=== PATIENT | male | born 1945 | race Caucasian/White ===

== ENCOUNTER 2024-08-17 12:15 | Inpatient (IN) | payer MEDICARE ==
[~2024-08-17] VITALS: Ht 182.9 cm; Wt 88.0 kg
[2024-08-17] MEDS ORDERED: dexaMETHasone SOD PHOSPHATE 1 ML ONE (12:32)
[2024-08-17] MEDS: IV NS 0.9% 1,000 ML BAG IV ONE (12:40)
[2024-08-17] MEDS: dexaMETHasone SOD PHOSPHATE 4 MG/ML VIAL IV ONE (12:45)
[2024-08-17] MEDS ORDERED: IPRATROPIUM NEB FS 0.5 MG/2.5 ML AMPUL.NEB ONE (12:47)
[2024-08-17] MEDS ORDERED: ALBUTEROL FS 2.5 MG/3 ML VIAL.NEB ONE (12:47)
[2024-08-17 12:48] VITALS: O2SAT 91
[2024-08-17 12:50] LABS: BASOPHILS # (AUTO) 0.1 K/uL (0.0-0.2); BASOPHILS % (AUTO) 0.8 % (0.0-2.0); EOSINOPHILS # (AUTO) 0.2 K/uL (0.0-0.7); EOSINOPHILS % (AUTO) 3.7 % (0.0-6.0); HEMATOCRIT 41 % (39-51); HEMOGLOBIN 13.9 g/dL (13.5-17.5); LYMPHOCYTES # (AUTO) 0.2 K/uL (0.8-4.8); LYMPHOCYTES % (AUTO) 2.7 % (20.0-44.0); MEAN CORPUSCULAR HEMOGLOBIN 31 PG (26.0-33.0); MEAN CORPUSCULAR HGB CONC 34 g/dl (31.0-36.0); MEAN CORPUSCULAR VOLUME 93 fL (80-96); MONOCYTES # (AUTO) 0.4 K/uL (0.1-1.30); MONOCYTES % (AUTO) 5.7 % (2.0-12.0); NEUTROPHILS # (AUTO) 5.9 K/uL (1.8-8.9); NEUTROPHILS % (AUTO) 87.1 % (43.0-81.0); PLATELET COUNT (AUTO) 320 K/uL (150-450); RED BLOOD CELL COUNT(AUTO) 4.43 MIL/uL (4.5-6.0); RED CELL DISTRIBUTION WIDTH 14.4 % (11.5-15.0); WHITE BLOOD COUNT (AUTO) 6.7 K/uL (4.3-11.0)
[2024-08-17] MEDS ORDERED: Magnesium 1GM/D5W 100ML PREMIX 200 ML IV ONE (12:50)
[2024-08-17] MEDS: Magnesium 1GM/D5W 100ML PREMIX 200 ML IV ONE (12:50)
[2024-08-17] MEDS: IPRATROPIUM NEB FS 0.5 MG/2.5 ML AMPUL.NEB NEB ONE (12:52)
[2024-08-17] MEDS: ALBUTEROL FS 2.5 MG/3 ML VIAL.NEB NEB ONE (12:52)
[2024-08-17 13:03] VITALS: O2SAT 98; O2SAT 99
[2024-08-17 13:03] LABS: CALCIUM, SERUM 9.6 mg/dL (8.5-10.1); CREATININE 0.9 mg/dL (0.6-1.3); POTASSIUM 3.5 mmol/L (3.5-5.1)
[2024-08-17] MEDS: CEFEPIME 1 GM in IV D5W 50 ML IV ONE (13:05)
[2024-08-17 13:08] LABS: ALBUMIN 3.7 g/dL (3.4-5.0); BILIRUBIN,DIRECT 0.2 mg/dL (0.0-0.2); BILIRUBIN,TOTAL 0.7 mg/dL (0.2-1.0); TOTAL PROTEIN, SERUM 7.6 g/dL (6.4-8.2)
[2024-08-17 13:11] LABS: LACTIC ACID 1.3 mmol/L (0.4-2.0)
[2024-08-17 13:19] LABS: INR 1.03 (0.91-1.10); PARTIAL THROMBOPLASTIN TIME 28.7 SEC (24.3-34.3); PROTHROMBIN TIME 10.9 SECS (9.2-11.1)
[2024-08-17] MEDS: VANCOMYCIN 1 GM in IV D5W 250 ML IV ONE (14:10)
[2024-08-17 15:19] LABS: APPEARANCE,URINE CLEAR (CLEAR); BILIRUBIN,URINE 1+ (NEGATIVE); BLOOD, URINE NEGATIVE Ery/uL (NEGATIVE); COLOR,URINE YELLOW (YELLOW); KETONES,URINE 2+ mg/dL (NEGATIVE); LEUKOCYTE ESTERASE ,URINE NEGATIVE (NEGATIVE); NITRITE, URINE NEGATIVE (NEGATIVE); PROTEIN,URINE NEGATIVE (NEGATIVE); UGLUCOSE NEGATIVE (NEGATIVE)
[2024-08-17 16:29] LABS: RBC,URINE 0-2 /HPF (0-2); WBC,URINE 0-2 /HPF (0-3)
[2024-08-17 16:30] LABS: ADD URINE CULTURE NO; BACTERIA,URINE None seen /HPF (None Seen); MUCUS,URINE Few /LPF (None Seen); SQUAMOUS EPITHELIAL CELL,UR 0-2 /HPF (None Seen)
[2024-08-17] MEDS ORDERED: ONDANSETRON HCL/PF 4 MG/2 ML VIAL IVP PRN (17:30)
[2024-08-17] MEDS ORDERED: MAGNESIUM HYDROXIDE 30 ML UDC PO PRN (17:30)
[2024-08-17 20:00] VITALS: BP 127/53; TEMP 97.9; O2SAT 95
[2024-08-17] MEDS: ENOXAPARIN SODIUM 40 MG/0.4 ML DISP.SYRIN SQ SCH (22:00)
[2024-08-18] VITALS (8 sets, daily range): BP systolic 125–154; BP diastolic 53–93; TEMP 97.3–98; O2SAT 93–99
[2024-08-18] MEDS: NICOTINE PATCH (14MG) 14 MG PATCH.TD24 TD SCH (02:02)
[2024-08-18 06:52] LABS: CALCIUM, SERUM 8.8 mg/dL (8.5-10.1); CREATININE 0.8 mg/dL (0.6-1.3); MAGNESIUM 2.2 mg/dL (1.8-2.4); PHOSPHORUS 2.4 mg/dL (2.5-4.9); POTASSIUM 3.7 mmol/L (3.5-5.1)
[2024-08-18 07:00] LABS: BASOPHILS % (AUTO) 0.1 % (0.0-2.0); HEMATOCRIT 38 % (39-51); HEMOGLOBIN 12.7 g/dL (13.5-17.5); LYMPHOCYTES # (AUTO) 0.2 K/uL (0.8-4.8); LYMPHOCYTES % (AUTO) 5.2 % (20.0-44.0); MEAN CORPUSCULAR HEMOGLOBIN 31 PG (26.0-33.0); MEAN CORPUSCULAR HGB CONC 34 g/dl (31.0-36.0); MEAN CORPUSCULAR VOLUME 92 fL (80-96); MONOCYTES # (AUTO) 0.7 K/uL (0.1-1.30); MONOCYTES % (AUTO) 17.5 % (2.0-12.0); NEUTROPHILS # (AUTO) 3.1 K/uL (1.8-8.9); NEUTROPHILS % (AUTO) 77.2 % (43.0-81.0); PLATELET COUNT (AUTO) 279 K/uL (150-450); RED CELL DISTRIBUTION WIDTH 14.2 % (11.5-15.0)
[2024-08-18] MEDS ORDERED: methylPREDNISolone SOD SUCC 40 MG/ML VIAL IV SCH (09:00)
[2024-08-18 10:27] LABS: ABG BASE EXCESS -1.1 mmol/L (-2.0-3.0); ABG OXYGEN SATURATION 93.5 % (94.0-98.0); ABG PCO2 29.8 mmHg (35.0-48.0); ABG PH 7.475 (7.350-7.450); ABG PO2 63.3 mmHg (83.0-108.0); ABG TOTAL HEMOGLOBIN 13.2 G/dL (13.5-17.5); COHb 0.2 % (0.5-1.5); MetHb 0.2 % (0.0-1.5); O2Hb 93.1 % (94.0-97.0); SITE, ABG RIGHT RADIAL
[2024-08-18] MEDS: PANTOPRAZOLE 40 MG TABLET.DR PO SCH (10:49)
[2024-08-18] MEDS: methylPREDNISolone SOD SUCC 40 MG/ML VIAL IV SCH (10:49)
[2024-08-18 11:06] LABS: LYMPHOCYTES % (MANUAL) 2 % (16-48); MONOCYTES % (MANUAL) 6 % (0-11.0); NEUTROPHILS % (MANUAL) 92 (42-76); PLATELET ESTIMATE ADEQUATE
[2024-08-18 11:07] LABS: THYROID STIMULATING HORMONE 0.11 uIU/mL (0.358-3.74)
[2024-08-18] MEDS: NICOTINE PATCH (21MG) 21 MG PATCH.TD24 TD SCH (11:09)
[2024-08-18] MEDS: DOXYCYCLINE HYCLATE (100 MG) 100 MG TABLET PO SCH (17:14)
[2024-08-18] MEDS: K PHOS NEUTRAL 250 MG TABLET PO ONE (17:14)
[2024-08-18] MEDS: ALBUTEROL FS 2.5 MG/3 ML VIAL.NEB NEB SCH (19:39)
[2024-08-18] MEDS: IPRATROPIUM NEB FS 0.5 MG/2.5 ML AMPUL.NEB NEB SCH (19:39)
[2024-08-19] VITALS (12 sets, daily range): BP systolic 116–156; BP diastolic 66–96; TEMP 97.3–98.4; O2SAT 95–100
[2024-08-19] MEDS: ACETAMINOPHEN W/ CODEINE#3 1 EA TABLET PO PRN (02:29)
[2024-08-19 06:07] LABS: FOLIC ACID 5.7 ng/mL (>3.0)
[2024-08-19] MEDS: Z GUARD REMEDY 4 OZ OINT TP PRN (16:19)
[2024-08-20] VITALS (11 sets, daily range): BP systolic 104–152; BP diastolic 61–88; TEMP 97.3–98.8; O2SAT 94–98
[2024-08-20 07:03] LABS: CALCIUM, SERUM 9.1 mg/dL (8.5-10.1)
[2024-08-20 07:09] LABS: BASOPHILS % (AUTO) 0.3 % (0.0-2.0); HEMATOCRIT 45 % (39-51); HEMOGLOBIN 15.1 g/dL (13.5-17.5); LYMPHOCYTES # (AUTO) 1.3 K/uL (0.8-4.8); LYMPHOCYTES % (AUTO) 21.6 % (20.0-44.0); MEAN CORPUSCULAR HEMOGLOBIN 31 PG (26.0-33.0); MEAN CORPUSCULAR HGB CONC 34 g/dl (31.0-36.0); MEAN CORPUSCULAR VOLUME 92 fL (80-96); MONOCYTES # (AUTO) 1.2 K/uL (0.1-1.30); NEUTROPHILS # (AUTO) 3.7 K/uL (1.8-8.9); NEUTROPHILS % (AUTO) 59.1 % (43.0-81.0); PLATELET COUNT (AUTO) 291 K/uL (150-450); RED BLOOD CELL COUNT(AUTO) 4.86 MIL/uL (4.5-6.0); RED CELL DISTRIBUTION WIDTH 14.5 % (11.5-15.0); WHITE BLOOD COUNT (AUTO) 6.2 K/uL (4.3-11.0)
[2024-08-20 07:32] LABS: POTASSIUM 2.8 mmol/L (3.5-5.1)
[2024-08-20] MEDS: POTASSIUM CHLORIDE 20 MEQ TAB.PRT.SR PO SCH (09:30)
[2024-08-20 13:43] LABS: LYMPHOCYTES % (MANUAL) 15 % (16-48); MONOCYTES % (MANUAL) 9 % (0-11.0); NEUTROPHILS % (MANUAL) 76 (42-76); PLATELET ESTIMATE ADEQUATE
[2024-08-21] VITALS (10 sets, daily range): BP systolic 117–157; BP diastolic 69–81; TEMP 97.9–98.1; O2SAT 95–99
[2024-08-21 06:12] LABS: BASOPHILS % (AUTO) 0.1 % (0.0-2.0); HEMATOCRIT 42 % (39-51); HEMOGLOBIN 14.2 g/dL (13.5-17.5); LYMPHOCYTES # (AUTO) 0.9 K/uL (0.8-4.8); LYMPHOCYTES % (AUTO) 14.3 % (20.0-44.0); MEAN CORPUSCULAR HEMOGLOBIN 31 PG (26.0-33.0); MEAN CORPUSCULAR HGB CONC 34 g/dl (31.0-36.0); MEAN CORPUSCULAR VOLUME 93 fL (80-96); MONOCYTES # (AUTO) 1.1 K/uL (0.1-1.30); MONOCYTES % (AUTO) 17.4 % (2.0-12.0); NEUTROPHILS # (AUTO) 4.2 K/uL (1.8-8.9); NEUTROPHILS % (AUTO) 68.2 % (43.0-81.0); PLATELET COUNT (AUTO) 279 K/uL (150-450); RED BLOOD CELL COUNT(AUTO) 4.51 MIL/uL (4.5-6.0); RED CELL DISTRIBUTION WIDTH 14.7 % (11.5-15.0); WHITE BLOOD COUNT (AUTO) 6.1 K/uL (4.3-11.0)
[2024-08-21 06:19] LABS: CALCIUM, SERUM 8.5 mg/dL (8.5-10.1); CREATININE 1.5 mg/dL (0.6-1.3); MAGNESIUM 2.3 mg/dL (1.8-2.4); PHOSPHORUS 5.7 mg/dL (2.5-4.9); POTASSIUM 4.5 mmol/L (3.5-5.1)
[2024-08-21 10:29] LABS: LYMPHOCYTES % (MANUAL) 14 % (16-48); MONOCYTES % (MANUAL) 13 % (0-11.0); NEUTROPHILS % (MANUAL) 73 (42-76); PLATELET ESTIMATE ADEQUATE
[2024-08-21 15:31] LABS: CALCIUM, SERUM 8.8 mg/dL (8.5-10.1); CREATININE 1.2 mg/dL (0.6-1.3); POTASSIUM 4.4 mmol/L (3.5-5.1)
[2024-08-21] MEDS: ACETAMINOPHEN 325 MG TABLET PO PRN (16:54)
[2024-08-22] VITALS (11 sets, daily range): BP systolic 125–163; BP diastolic 66–82; TEMP 96.5–98.4; O2SAT 95–99
[2024-08-22 12:10] LABS: VITAMIN B1 THIAMINE,WB 86.4 nmol/L (66.5-200.0)
[2024-08-23] VITALS (10 sets, daily range): BP systolic 105–161; BP diastolic 58–96; TEMP 97.7–99; O2SAT 95–99
[2024-08-24] VITALS (10 sets, daily range): BP systolic 105–123; BP diastolic 56–65; TEMP 97.7–99.3; O2SAT 92–100
[2024-08-24 07:27] LABS: ALBUMIN 2.9 g/dL (3.4-5.0); BILIRUBIN,TOTAL 0.5 mg/dL (0.2-1.0); CALCIUM, SERUM 8.7 mg/dL (8.5-10.1); MAGNESIUM 2.4 mg/dL (1.8-2.4); PHOSPHORUS 3.2 mg/dL (2.5-4.9); POTASSIUM 3.6 mmol/L (3.5-5.1); TOTAL PROTEIN, SERUM 6.7 g/dL (6.4-8.2)
[2024-08-24 08:29] LABS: BASOPHILS % (AUTO) 0.2 % (0.0-2.0); HEMATOCRIT 42 % (39-51); HEMOGLOBIN 14.2 g/dL (13.5-17.5); LYMPHOCYTES % (AUTO) 14.6 % (20.0-44.0); MEAN CORPUSCULAR HEMOGLOBIN 32 PG (26.0-33.0); MEAN CORPUSCULAR HGB CONC 34 g/dl (31.0-36.0); MEAN CORPUSCULAR VOLUME 92 fL (80-96); MONOCYTES % (AUTO) 14.6 % (2.0-12.0); NEUTROPHILS # (AUTO) 4.7 K/uL (1.8-8.9); NEUTROPHILS % (AUTO) 70.6 % (43.0-81.0); PLATELET COUNT (AUTO) 194 K/uL (150-450); RED CELL DISTRIBUTION WIDTH 14.6 % (11.5-15.0); WHITE BLOOD COUNT (AUTO) 6.7 K/uL (4.3-11.0)
[2024-08-24] MEDS: predniSONE 20 MG TABLET PO ONE (10:25)
[2024-08-25] VITALS (8 sets, daily range): BP systolic 126–143; BP diastolic 75–76; TEMP 97.7–97.9; O2SAT 92–100
[2024-08-25] MEDS: predniSONE 20 MG TABLET PO SCH (09:09)
[2024-08-26] VITALS (9 sets, daily range): BP systolic 108–138; BP diastolic 82–91; TEMP 98.4–98.8; O2SAT 95–100
[2024-08-26] MEDS: IV NS 0.9% 500 ML BAG IV ONE (14:40)
[2024-08-26] MEDS: IV NS 0.9% 1,000 ML IV PRN (17:04)
[2024-08-27] VITALS (11 sets, daily range): BP systolic 102–142; BP diastolic 60–105; TEMP 97.9–98.6; O2SAT 91–98
[2024-08-27] MEDS: predniSONE 20 MG TABLET PO SCH (08:12)
[2024-08-27] MEDS: TAMSULOSIN 0.4 MG CAP.SR.24H PO SCH (21:21)
[2024-08-28] VITALS (9 sets, daily range): BP systolic 108–141; BP diastolic 65–98; TEMP 97.2–98.4; O2SAT 91–97
[2024-08-28 07:35] LABS: BILIRUBIN,TOTAL 0.5 mg/dL (0.2-1.0); CALCIUM, SERUM 7.9 mg/dL (8.5-10.1); CREATININE 0.7 mg/dL (0.6-1.3); MAGNESIUM 1.9 mg/dL (1.8-2.4); PHOSPHORUS 2.2 mg/dL (2.5-4.9); TOTAL PROTEIN, SERUM 5.6 g/dL (6.4-8.2)
[2024-08-28 07:39] LABS: BASOPHILS % (AUTO) 0.1 % (0.0-2.0); EOSINOPHILS % (AUTO) 0.1 % (0.0-6.0); HEMATOCRIT 38 % (39-51); HEMOGLOBIN 12.7 g/dL (13.5-17.5); LYMPHOCYTES # (AUTO) 0.8 K/uL (0.8-4.8); MEAN CORPUSCULAR HEMOGLOBIN 31 PG (26.0-33.0); MEAN CORPUSCULAR HGB CONC 34 g/dl (31.0-36.0); MEAN CORPUSCULAR VOLUME 92 fL (80-96); MONOCYTES # (AUTO) 0.7 K/uL (0.1-1.30); MONOCYTES % (AUTO) 7.6 % (2.0-12.0); NEUTROPHILS # (AUTO) 7.2 K/uL (1.8-8.9); NEUTROPHILS % (AUTO) 83.2 % (43.0-81.0); PLATELET COUNT (AUTO) 202 K/uL (150-450); RED BLOOD CELL COUNT(AUTO) 4.08 MIL/uL (4.5-6.0); RED CELL DISTRIBUTION WIDTH 14.3 % (11.5-15.0); WHITE BLOOD COUNT (AUTO) 8.6 K/uL (4.3-11.0)
[2024-08-28] MEDS: POTASSIUM CHLORIDE 20 MEQ TAB.PRT.SR PO SCH (09:41)
[2024-08-28] MEDS ORDERED: ALBUT2 NEB (11:27)
[2024-08-28] MEDS ORDERED: NICO-762 TD (11:27)
[2024-08-28] MEDS ORDERED: ENOX40DI SQ (11:27)
[2024-08-28] MEDS ORDERED: IPRA0.2S9 NEB (11:27)
[2024-08-28] MEDS ORDERED: PANT40TA49 PO (11:27)
[2024-08-28] MEDS ORDERED: Tamsulosin PO (11:27)
[2024-08-28] MEDS: K PHOS NEUTRAL 250 MG TABLET PO ONE (17:07)
[2024-08-29 04:00] VITALS: BP 109/56; TEMP 97.5; O2SAT 96
[2024-08-29 07:55] VITALS: O2SAT 97
[2024-08-29 08:10] VITALS: O2SAT 97
[2024-08-29 12:00] VITALS: BP 109/56; TEMP 97.5; O2SAT 97
[2024-08-29 13:24] VITALS: O2SAT 96
[2024-08-29 13:39] VITALS: O2SAT 97
== END 2024-08-29 22:06 | DRG 190 ==
LOC: ER 12:18 → TELE1 18:20 → MEDSG1 08-18 08:10
PROVIDERS: ADMIT Nurse Practitioner Family; ATTEND Nurse Practitioner Acute Care
DX: J44.1 Chronic obstructive pulmonary disease with (acute) exacerbation (principal); G93.41 Metabolic encephalopathy; J96.01 Acute respiratory failure with hypoxia; E87.1 Hypo-osmolality and hyponatremia; N17.9 Acute kidney failure, unspecified; I10 Essential (primary) hypertension; R62.7 Adult failure to thrive; E86.0 Dehydration; Z91.81 History of falling; R29.6 Repeated falls; Z91.89 Other specified personal risk factors, not elsewhere classified; E87.6 Hypokalemia; F17.200 Nicotine dependence, unspecified, uncomplicated; M89.8X9 Other specified disorders of bone, unspecified site; Z86.73 Personal history of transient ischemic attack (TIA), and cerebral infarction without residual deficits; Z66 Do not resuscitate; E86.9 Volume depletion, unspecified
CPT/HCPCS: 36415; 36600; 70450-TC; 71045-TC; 72170-TC; 76770-TC; 80048-TC; 80053-TC; 80061-TC; 80076-TC; 81001; 82607-TC; 82803-TC; 83605-TC; 83735-TC; 83921; 84100-TC; 84425; 84443-TC; 85025-TC; 85730-TC; 87040-TC; 87086-TC; 94760-TC; 94761-TC; 94799-TC; 97110-TC; 97116-TC; 97530-TC; 97535-TC; A4223; A6213; A6253; A7526; G0378; J0692; J1100; J1650; J2919; J3370; J3475; J7030; J7040; J7060